=== PATIENT | female | born 2000 | race African-American/Black ===

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

== ENCOUNTER 2019-01-19 14:55 | Emergency (ER) | payer OTHER ==
[2019-01-19] MEDS ORDERED: Ketorolac Tromethamine 30 MG/ML VIAL ONE (15:19)
== END 2019-01-19 15:36 | disposition home or self-care (01) ==
LOC: NAV ERS 14:55
DX: J01.90 Acute sinusitis, unspecified (principal)
CPT/HCPCS: 96372; J1885

== ENCOUNTER 2019-12-16 16:49 | Emergency (ER) | payer SELFPAY | END 2019-12-16 17:12 | disposition home or self-care (01) | LOC: NAV ERS 16:49 | DX: H61.21 Impacted cerumen, right ear (principal) | CPT/HCPCS: 99282 ==

== ENCOUNTER 2020-03-20 13:55 | Emergency (ER) | payer OTHER, SELFPAY | END 2020-03-20 14:35 | disposition home or self-care (01) | LOC: NAV ERS 13:55 | DX: Z20.828 Contact with and (suspected) exposure to other viral communicable diseases (principal) | CPT/HCPCS: 87635; 99283; U0003 ==